=== PATIENT | female | born 1955 | race Caucasian/White ===

== ENCOUNTER → 2021-04-14 | Outpatient (CLI) | payer OTHER ==
--- NOTE | 2021-04-14 14:12 | RAD ---
Exam description: NM PET/CT SKULL BASE TO MID THIGH Date of service: 04/14/2021 12:41 PM Clinical history: 65 years-old Female with Reason: LUNG MASS / Spl. Instructions: / History: . Comparison: None. Technique: The patient has a measured blood glucose level of 121 mg/dL at the time of radiopharmacuet ical injection. The patient was injected with 12.3 mCi of 18F-FDg intravenously and remained in a jorge et dimly lit room for approximately 60 minutes for the uptake phase of the examination. The patient w as then placed in the PET/CT scanner and images were obtained from the top of the skull through the u pper thighs. CT images were used primarily for attenuation correction and localization. The attenuate d corrected and non corrected PET, CT, and fused PET/CT images were reviewed at the [facility] workstation. Findings: HEAD/NECK: Normal symmetric physiologic activity is identified within the extraocular muscles and bra in. No abnormal radiotracer activity is identified within the head and neck. No abnormally enlarged l ymph nodes are evident. Extensive sinusitis involving the maxillary, ethmoid and to a lesser extent t he sphenoid sinuses. CHEST: Spiculated hypermetabolic nodule in the anterior right upper lobe measuring 2.9 x 2.6 m in max imal axial diameter with tethering to the adjacent anterior pleura and also nodular thickening extend ing to the right minor fissure with a SUV max of 6.0. Non-FDG avid 6 mm noncalcified nodules in the l ateral segment of the right middle lobe and also in the superior segment of the right lower lobe, thi s may be below the size threshold for PET CT. Moderate predominantly dependent bibasilar subsegmental atelectasis. There is a subpleural groundglass nodularity measuring 1.1 cm in the dependent portion of the left lower lobe with no associated FDG avidity favoring subsegmental atelectasis. No pathologi dheeraj enlarged supraclavicular, hilar, paratracheal, or mediastinal lymphadenopathy. The heart is not enlarged. Extensive coronary artery atherosclerotic disease. No pericardial effusion. Central airway s clear. Mild distal esophageal wall thickening may relate to reflux dysphagia process. ABDOMEN/PELVIS: There is normal metabolic activity within the liver, spleen, kidneys, collecting syst em, and bowel. No abnormal lymphadenopathy or hypermetabolic activity is identified. Adrenal glands a re normal. 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 No evidence of obstruction in the jejunum. The j ejunojejunostomy appears intact. Gallbladder is surgically absent. There is a moderate amount of colo earlene stool content without evidence of obstruction or focal suspicious FDG avidity. Uterus is absent. SKELETAL STRUCTURES: There is normal physiologic activity within the osseous structures, bone marrow, and skeletal muscle. Multilevel degenerative changes of the thoracic and lumbar spine and also pelvi s. Impression: 1. Spiculated FDG avid right upper lobe nodule with tethering to the adjacent anterior pleura suspici ous for primary pulmonary malignancy. No evidence of sahara metastasis. 2. Additional indeterminate subcentimeter non-FDG avid nodules within the right middle and lower lobe s. Correlation with prior imaging to document stability, otherwise additional areas of malignancy are not excluded. 3. No evidence of metastatic disease in the neck, abdomen or pelvis. 4. Extensive paranasal sinusitis. PQRS Compliance Statement: One or more of the following individualized dose reduction techniques were utilized for this examinat ion: 1. Automated exposure control 2. Adjustment of the mA and/or kV according to patient size 3. Use of iterative reconstruction technique Electronically signed by: Mark Garcia DO (04/14/2021 2:10 PM) [id number]
== END ==
LOC: PETSC 10:26
PROVIDERS: ATTEND Internal Medicine Medical Oncology
DX: J84.170 Interstitial lung disease with progressive fibrotic phenotype in diseases classified elsewhere (principal); J32.8 Other chronic sinusitis; R91.8 Other nonspecific abnormal finding of lung field; M47.816 Spondylosis without myelopathy or radiculopathy, lumbar region; M47.815 Spondylosis without myelopathy or radiculopathy, thoracolumbar region; Z90.49 Acquired absence of other specified parts of digestive tract; Z90.710 Acquired absence of both cervix and uterus; Z98.890 Other specified postprocedural states
CPT/HCPCS: 78815; A9552

== ENCOUNTER 2021-05-12 07:00 | Outpatient (CLI) | payer OTHER ==
[~2021-05-12] VITALS: Ht 142.2 cm; Wt 78.2 kg
[2021-05-12 07:33] LABS: BASO % 1 % (0-3); EOS # 0.1 x10^3/uL (0.0-0.7); EOS % 3 % (0-3); HEMATOCRIT 39.6 % (36.0-47.0); HEMOGLOBIN 12.9 g/dL (12.0-15.5); LYMPH # 1.2 x10^3/uL (1.0-4.8); LYMPH % 20 % (24-48); MEAN CORPUSCULAR HEMOGLOBIN 27 pg (25-35); MEAN CORPUSCULAR HGB CONC 33 g/dL (31-37); MEAN CORPUSCULAR VOLUME 82 fL (79-100); MONO # 0.5 x10^3/uL (0.0-1.1); MONO % 8 % (0-9); NEUT # 4.1 x10^3/uL (1.8-7.7); NEUT % 69 % (31-73); PLATELET COUNT 255 x10^3/uL (140-400); RED BLOOD COUNT 4.86 x10^6/uL (3.50-5.40); RED CELL DISTRIBUTION WIDTH 17.2 % (11.5-14.5); WHITE BLOOD COUNT 5.9 x10^3/uL (4.0-11.0)
[2021-05-12 07:57] VITALS: BP 143/73
[2021-05-12] MEDS ORDERED: SERT100T PO (08:22)
[2021-05-12] MEDS ORDERED: DIAZ2TAB PO (08:22)
[2021-05-12] MEDS ORDERED: LIDOCAINE WITH 8.4% SOD BICARB 3 ML DISP.SYRIN. ONE ×2 (08:22→08:31)
[2021-05-12] MEDS ORDERED: CELE100C PO (08:22)
[2021-05-12] MEDS ORDERED: CALC600T60 PO (08:22)
[2021-05-12] MEDS ORDERED: CALC0.5C8 PO (08:22)
[2021-05-12] MEDS ORDERED: HYDR-2145 PO (08:22)
[2021-05-12] MEDS ORDERED: PRAV10TA2 PO (08:22)
[2021-05-12] MEDS ORDERED: ALBU2.5V8 IH (08:22)
[2021-05-12] MEDS ORDERED: EMPA25TA PO (08:22)
[2021-05-12] MEDS ORDERED: fentaNYL PF VIAL 100 MCG/2 ML VIAL ONE (08:54)
[2021-05-12] MEDS ORDERED: MIDAZOLAM HCL/PF 2 MG/2 ML VIAL. ONE (08:54)
--- NOTE | 2021-05-12 09:54 | NUR ---
Images obtained and mass was smaller, patient discussed 3 month follow up with doctor.
--- NOTE | 2021-05-12 13:26 | RAD ---
Limited CT chest without contrast 05/12/2021 INDICATION: Intraprocedural imaging for planned right upper lobe mass biopsy Discussion: CT images of the chest without contrast were obtained for expected biopsy of a right uppe r lobe pulmonary mass. Comparison is made to PET/CT from April 14, 2021 March 08, 2021. CT imaging was obtained demonstrating significant continued decrease in size and conspicuity of the right upper lobe masslike opacification,, now more bandlike in appearance. Findings were discussed the patient a s well as modified discussion of risks and benefits of biopsy. Given continued decrease in size, unch anged in morphology the patient elects for observation. Recommend 3 month follow-up CT chest with con trast. IMPRESSION: Decreasing right upper lobe masslike consolidation. Malignancy is felt to be less likely than on preprocedural assessment. Recommend three-month follow-up contrast enhanced CT chest. CT DOSING PQRS STATEMENT: One or more of the following individualized dose reduction techniques were utilized for this examinat ion: 1. Automated exposure control 2. Adjustment of the mA and/or kV according to patient size 3. Use of iterative reconstruction technique Electronically signed by: iVvek Gupta MD (05/12/2021 1:24 PM) [id number]
== END 2021-05-12 09:55 | disposition home or self-care (01) ==
LOC: INTRAD 07:00
PROVIDERS: ATTEND Internal Medicine Medical Oncology
DX: R91.8 Other nonspecific abnormal finding of lung field (principal); J84.170 Interstitial lung disease with progressive fibrotic phenotype in diseases classified elsewhere; I10 Essential (primary) hypertension; E78.00 Pure hypercholesterolemia, unspecified; J45.909 Unspecified asthma, uncomplicated; M19.90 Unspecified osteoarthritis, unspecified site; E11.9 Type 2 diabetes mellitus without complications; F41.9 Anxiety disorder, unspecified; F32.9 Major depressive disorder, single episode, unspecified; Z87.440 Personal history of urinary (tract) infections; Z90.710 Acquired absence of both cervix and uterus; Z98.890 Other specified postprocedural states; Z79.899 Other long term (current) drug therapy; Z87.891 Personal history of nicotine dependence; Z88.5 Allergy status to narcotic agent; Z88.8 Allergy status to other drugs, medicaments and biological substances
CPT/HCPCS: 36415; 71250; 82310; 85025; 85610